=== PATIENT | female | born 1975 | race Caucasian/White ===

== ENCOUNTER 2023-09-24 04:45 | Emergency (ER) | payer OTHER, SELFPAY ==
[2023-09-24 04:48] VITALS: BP 117/79
[2023-09-24 06:28] VITALS: BMI 26.6
--- NOTE | 2023-09-24 06:34 | ED.GENMED ---
History of Present Illness
General
Chief Complaint: Abdominal Symptoms
Source: patient
Exam Limitations: none
Time Seen by Provider: 09/24/23 06:11
Nursing documentation reviewed up to this point in time: agreed with
Travel History
Have you had any contact with someone who has COVID-19?: No
Do you have any symptoms of coronavirus? Fever > 100 degrees, chills, cough, shortness of breath, sore throat, loss of taste or smell, muscle aches, or headache?: No
History of Present Illness
History of Present Illness:
48-year-old female with past medical history of chronic constipation who presents to the emergency department for evaluation of abdominal pain. Patient reports onset of symptoms about a week or 2 ago and they have been constant and progressive
since then. She reports a pressure sensation across her lower abdomen associated with feeling of distention/bloating. She reports that she has had some nausea and this morning had an episode of vomiting which is very unusual for her. She came to
the emergency room for evaluation. She denies any diarrhea and says that her constipation has been reasonably well-controlled that she takes MiraLAX and was recently started on Linzess about 3 weeks ago by GI doctor. She denies any fevers or
chills. Denies any urinary symptoms. Denies any vaginal bleeding or discharge. She denies any prior history of abdominal surgeries.
Past History
Past History
ED Past Medical History: Other (Constipation, Diverticulitis, anxiety)
ED Past Surgical History: , Gynecological (Dilatation and evacuation 06/16/2013), Orthopedic (Left and R TKR) and Other (Abdominoplasty); Negative Appendectomy, Bowel resection, Cardiac or Cholecystectomy
Social History
Tobacco: Non-smoker
Alcohol: None
Drug: None
Personal:
Living: with family
Employment: Employed
Family History
Family History: Other (Noncontributory)
Review of Systems
Review of Systems
All Other Systems: ROS reviewed and negative except as documented in HPI and ROS
Constitutional: Denies fever or chills
EENT: Denies sore throat or runny nose
Respiratory: Denies cough or trouble breathing
Cardiac: Denies chest pain or palpitations
ABD/GI: Reports abdominal pain, nausea and vomiting; Denies diarrhea or constipated
: Denies dysuria, frequency, flank pain or bleeding
Musculoskeletal: Denies neck pain or back pain
Neurological: Denies dizzy, headache, weakness or numbness
Phy Exam
Physical Exam
Physical Exam:
General: Awake, alert, oriented x3; no acute distress
Head: Normocephalic, atraumatic
Eyes: Conjunctiva normal, sclera anicteric
Throat: Airway intact, handling secretions
Neck: Trachea midline, supple without meningismus
Lungs: Clear to auscultation bilaterally, no wheezing, rales, rhonchi
Heart: Regular rate and rhythm, no murmurs, gallops, or rubs
Abd: Soft, non distended, mildly tender across lower abdomen somewhat worse left lower quadrant; no abdominal masses
Neuro: Cranial nerves grossly intact, speech fluid
Skin: no rash
Extremities: No edema in extremities, equal pulses in all extremities
Scores
Heart Failure Risk
Heart Failure Risk Score: Not Applicable
Heart Score for Chest Pain Patients
STEMI patient?: Not applicable
Withdrawal Assessment of Alcohol
Withdrawal Assessment Completed?: Not applicable
Course
Orders/Labs/Results
Orders:
Orders
09/24/23 06:25
Complete Blood Count/With Diff Urgent
Comprehensive Metabolic Panel Urgent
HCG, Serum Qualitative Screen Urgent
Lipase Urgent
Urinalysis Reflex To Culture Urgent
Date Specimen was Collected: 09/24/23
Time Specimen was Collected: 06:10
09/24/23 06:34
CT Abd/pel W Iv And Oral Contr Urgent
Comment:
Reason For Exam: lower abd pain, N/V
Iohexol [Omnipaque] See Protocol PO NOW STA
Test Result ONCE
Abnormal Lab Results
09/24/23
06:25
Absolute Lymphs (auto) 0.3 L 10^3/uL
(1.2-3.4)
Neutrophils % 89.0 H %
(42.2-75.2)
Lymphocytes % 4.2 L %
(20.5-51.1)
Sodium 133 L mmol/L
(135-145)
AST 63 H U/L
(14-36)
ALT 38 H U/L
(0-35)
09/24/23 06:25
09/24/23 06:25
Vital Signs
Initial and Last Documented VS:
Initial Vital Signs
Temp Pulse Resp BP Pulse Ox
36.9 C 89 16 117/79 100
09/24/23 04:48 09/24/23 04:48 09/24/23 04:48 09/24/23 04:48 09/24/23 04:48
Last Documented Vital Signs
Temp Pulse Resp BP Pulse Ox
36.9 C 73 16 108/65 100
09/24/23 04:48 09/24/23 08:15 09/24/23 08:15 09/24/23 08:15 09/24/23 08:15
MDM/Problems Addressed
Differential Diagnosis Includes:
Constipation, diverticulitis, bowel obstruction, medication side effect
MDM/Problems Addressed:
48-year-old female presents for abdominal pain, bloating and now an episode of nausea/vomiting this morning�symptoms have been ongoing for the past 1-2 weeks; notably recently started Linzess 3 weeks ago for chronic constipation. Vital signs here
within normal limits. Physical exam as above. Plan to place an IV check labs including CBC and a CMP, urinalysis. Will check CT of the abdomen pelvis. Will provide some IV fluids. Will monitor closely reassess after the above.
Labs reviewed: CBC unremarkable, CMP shows marginally elevated transaminases; has had similar elevations in the past. T bilirubin is normal, lipase is normal. Urinalysis no signs of infection. CT abdomen/pelvis shows mild to moderate colonic
fecal burden and rather diffuse diverticulosis. No clear signs of acute diverticulitis although somewhat difficult to visualize given paucity of intra-abdominal fat. Given amount of diverticulosis noted and the fact that she is having tenderness
on exam and could be reasonable to cover her with antibiotics for any potential developing diverticulitis. No clear negation for admission at this point think she can be discharged and can follow-up with GI as an outpatient. She feels comfortable
this plan. Spoke about return precautions all questions answered.
Chronic conditions affecting care:
Chronic constipation
*Radiology
Radiology exam reviewed: radiology read reviewed
*Pulse Oximetry
Patient hypoxic: no
*Critical Care Note
Total Time (30-74mins, 75-104mins- exclusive of procedures): Not Applicable
Data Reviewed
Review of Other/Old Records Reveals: Labs and Records
Source: patient
ED Attending Note
-
Portions of this chart may have been created with voice recognition software.� Occasional wrong word or��sound alike� substitutions may have occurred due to the inherent limitations of voice recognition software.
Discharge Plan
Departure
Patient Disposition: Home (Routine Discharge)
Date of Disposition: 09/24/23
Time of Disposition: 10:03
Patient with high blood pressure during this ER visit?: No
Discharge Problem:
Abdominal pain
Instructions: Constipation, Adult (DC), Diverticulitis (DC)
Prescriptions:
New
ciprofloxacin HCl 500 mg tablet
500 mg PO BID Qty: 14 0RF
metronidazole 500 mg tablet
500 mg PO TID Qty: 21 0RF
No Action
Motegrity 2 MG tablet
2 mg PO HS
terbinafine HCl 250 mg Tablet
250 mg PO DAILY
buspirone 10 mg Tablet
10 mg PO HS
Referrals:
Rachid Donato MD [Family Provider] -
Angely Taveras DO [Active] - Call in 1-3 days for appt
Activity Restrictions/Additional Instructions:
Thank you for visiting the Emergency Department at [facility].
1. Please schedule a follow up appointment as directed. Call first thing tomorrow morning to make an appointment.
2. If indicated, please take your medications as instructed and indicated on discharge paperwork.
3. If any of your symptoms do not improve, or persist, or become more severe within 6-12 hours, please return to the emergency department for further care.
4. Please return to the emergency department if you develop a headache, neck pain/stiffness, fever greater than 100.4F, chest pain, shortness of breath, persistent nausea, vomiting, slurred speech, difficulty walking, numbness/tingling, weakness,
signs of infection or any other symptoms that are worrisome to you.
Please call [phone] if you have any questions.
Interventions
Interventions:
*Risk Screen - Suicide Last Done: 09/24/23 04:48
*General Assessment Last Done: 09/24/23 06:28
*Neglect/Abuse Screening Last Done: 09/24/23 04:48
ED- Fall Risk Assessment Last Done: 09/24/23 06:28
*ED COVID-19 Vaccine History Last Done: 09/24/23 04:48
NS-Ekixsn-Yeplkvawrb Assessment Last Done: 09/24/23 06:28
[2023-09-24] MEDS: OMNIPAQUE 50 ML PO (06:44)
[2023-09-24 06:49] LABS: % Basophils 0.3 % (0-2); % Eosinophils 0.9 % (0-6); % Immature Granulocytes 0.2 % (0-0.5); % Lymphocytes 4.2 % (20.5-51.1); % Monocytes 5.4 % (1.7-9.3); Absolute Eosinophils 0.1 10^3/uL (0-0.7); Absolute Lymphocytes 0.3 10^3/uL (1.2-3.4); Absolute Monocytes 0.4 10^3/uL (0.1-0.6); Absolute Neutrophils 5.8 10^3/uL (1.4-6.5); Hematocrit 44.7 % (37.0-47.0); Mean Corp Hgb Conc. 33.6 g/dL (33.0-37.0); Mean Corpuscular Hgb 28.8 pg (27.0-31.0); Mean Corpuscular Volume 85.8 fL (81.0-99.0); Mean Platelet Volume 10.4 fL (7.4-10.4); Nucleated Red Blood Cells % 0 %; Platelet Count 302 10^3/uL (130-400); Red Blood Cell Count 5.21 10^6/uL (4.20-5.40); White Blood Cell Count 6.5 10^3/uL (4.8-10.8)
[2023-09-24 06:55] LABS: HCG, Serum Qualitative Screen Negative
[2023-09-24 06:59] LABS: ALT (SGPT) 38 U/L (0-35); AST (SGOT) 63 U/L (14-36); Albumin 4.4 g/dl (3.5-5.0); Alkaline Phosphatase 75 U/L (38-126); Blood Urea Nitrogen 14 mg/dl (7-17); Calcium 9.4 mg/dl (8.4-10.2); Carbon Dioxide 28 mmol/L (22-30); Chloride 102 mmol/L (98-107); Estimated Creatinine Clearance 92 ml/min; Glucose 92 mg/dl (70-99); Lipase 118 U/L (23-300); Potassium 4.6 mmol/L (3.5-5.1); Sodium 133 mmol/L (135-145); Total Bilirubin 0.7 mg/dl (0.2-1.3); Total Protein 7.1 g/dl (6.3-8.2); eGFR > 60.00
[2023-09-24 07:37] LABS: Urine Albumin Negative (Neg - Trace); Urine Bilirubin Negative (Negative); Urine Character Clear (Clear); Urine Color Yellow; Urine Glucose Negative (Negative); Urine Ketone Negative (Negative); Urine Leukocyte Negative (Negative); Urine Nitrite Negative (Negative); Urine Occult Blood Negative (Negative); Urine Urobilinogen Negative (Neg - 1+)
[2023-09-24 08:15] VITALS: BP 108/65
[2023-09-24 10:29] VITALS: BP 115/71
--- NOTE | 2023-09-24 10:29 | EDRN ---
Reviewed discharge instructions with patient. Verbalized understanding.
== END 2023-09-24 10:35 | disposition home or self-care (01) ==
LOC: EMR 04:45
PROVIDERS: EMERGENCY PHYSICIAN Emergency Medicine; FAMILY PHYSICIAN Internal Medicine
DX: R10.9 Unspecified abdominal pain (principal); K59.00 Constipation, unspecified; F41.9 Anxiety disorder, unspecified
CPT/HCPCS: 99284; 74177; 80053; 81003; 83690; 84703; 85025; Q9967

== ENCOUNTER 2023-10-01 21:51 | Emergency (ER) | payer OTHER, SELFPAY ==
[2023-10-01 21:53] VITALS: BP 122/84
[2023-10-01 22:10] LABS: % Basophils 0.9 % (0-2); % Eosinophils 2.3 % (0-6); % Immature Granulocytes 0.4 % (0-0.5); % Lymphocytes 33.4 % (20.5-51.1); % Monocytes 9.5 % (1.7-9.3); % Neutrophils 53.5 % (42.2-75.2); Absolute Basophils 0.1 10^3/uL (0-0.2); Absolute Eosinophils 0.2 10^3/uL (0-0.7); Absolute Lymphocytes 2.7 10^3/uL (1.2-3.4); Absolute Monocytes 0.8 10^3/uL (0.1-0.6); Absolute Neutrophils 4.3 10^3/uL (1.4-6.5); Hematocrit 38.2 % (37.0-47.0); Hemoglobin 13.3 g/dL (12.0-16.0); Mean Corp Hgb Conc. 34.8 g/dL (33.0-37.0); Mean Corpuscular Volume 83.4 fL (81.0-99.0); Nucleated Red Blood Cells % 0 %; Platelet Count 355 10^3/uL (130-400); Red Blood Cell Count 4.58 10^6/uL (4.20-5.40); White Blood Cell Count 8.1 10^3/uL (4.8-10.8)
[2023-10-01 22:29] LABS: ALT (SGPT) 44 U/L (0-35); AST (SGOT) 55 U/L (14-36); Albumin 4.5 g/dl (3.5-5.0); Alkaline Phosphatase 64 U/L (38-126); Blood Urea Nitrogen 9 mg/dl (7-17); Calcium 9.8 mg/dl (8.4-10.2); Carbon Dioxide 25 mmol/L (22-30); Chloride 97 mmol/L (98-107); Glucose 101 mg/dl (70-99); Sodium 133 mmol/L (135-145); Total Bilirubin 0.3 mg/dl (0.2-1.3); Total Protein 7.3 g/dl (6.3-8.2); eGFR > 60.00
[2023-10-02 01:02] VITALS: BP 119/81
--- NOTE | 2023-10-02 01:32 | ED.GENMED ---
History of Present Illness
General
Chief Complaint: Abdominal Symptoms
Source: patient
Exam Limitations: none
Time Seen by Provider: 10/02/23 01:12
Travel History
Have you had any contact with someone who has COVID-19?: No
Do you have any symptoms of coronavirus? Fever > 100 degrees, chills, cough, shortness of breath, sore throat, loss of taste or smell, muscle aches, or headache?: No
History of Present Illness
History of Present Illness:
This is a 48 year old female that comes in with c/o abd bloating, diarrhea and now right sided back pain. State that this started 3 weeks ago and she felt it was getting worse. States that a week ago on she vomited but has not vomited since
that time. States that she was seen here and told that she had diverticulitis and given Flagyl and Ciprofloxacin. States that she finished this today. States that she has this right sided dull back pain. States that her stool is still liquid. States
that she saw the GI on Thursday. He told her to flush out her system with a GI prep and an enema. States that she did this. States that yesterday she only eat a little broth and Jell-o and she was very bloated after this, you could see her abd being
distended. Today she worked out as she does every day and even with drinking water her abd gets distended. States that she probable had diarrhea bout 6 times today. Denies any fever, chills, chest pain, SOB, vomiting, headache, dizziness, urinary
burning.
Past History
Past History
ED Past Medical History: Other (Constipation, Diverticulitis,)
ED Past Surgical History: , Gynecological (Dilatation and evacuation 06/16/2013), Orthopedic (Left and R TKR, Left shoulder surgery, ) and Other (Abdominoplasty); Negative Appendectomy, Bowel resection, Cardiac or Cholecystectomy
Social History
Tobacco: Non-smoker
Alcohol: None
Drug: None
Personal:
Living: with family
Employment: Employed
Family History
Family History: Other (Noncontributory)
Review of Systems
Review of Systems
All Other Systems: ROS reviewed and negative except as documented in HPI and ROS
Constitutional: Reports no symptoms; Denies fever or chills
EENT: Reports no symptoms
Respiratory: Reports no symptoms; Denies cough or trouble breathing
Cardiac: Reports no symptoms; Denies chest pain
ABD/GI: Reports abdominal pain and diarrhea; Denies nausea or vomiting
: Reports no symptoms; Denies dysuria, frequency or urgency
Musculoskeletal: Reports no symptoms
Skin: Reports no symptoms
Neurological: Reports no symptoms; Denies dizzy or headache
Psychiatric: Reports no symptoms
Phy Exam
General Physical Exam
General Presentation: well appearing and no apparent distress
General age: appears stated age
General Skin: warm and dry
General Habitus: normal
General Mental: alert
General Hydration: appears well hydrated
ENT Exam
ENT Exam: TM's normal, pharynx normal and neck supple
Eye Exam
Eye Exam: EOMI
Cardiovascular Exam
Cardiovascular Exam: regular rate/rhythm, no edema, no murmur and normal peripheral pulses
Pulmonary Exam
Pulmonary Exam: lungs clear, no respiratory distress, no rales, chest non tender, no crackles, no rhonchi, no wheezing and no cough
Gastrointestinal Exam
Gastrointestinal Exam: normal bowel sounds, non tender, soft, no organomegaly, no pulsatile mass and non distended
Musculoskeletal Exam
Musculoskeletal Exam: full ROM and no edema
Skin Exam
Skin Exam: normal color, warm/dry, no rash and no petechia
Psychiatric Exam
Psychiatric Exam: normal mood/affect
Course
Orders/Labs/Results
Orders:
Orders
10/01/23 22:06
Complete Blood Count/With Diff Urgent
Comprehensive Metabolic Panel Urgent
10/02/23 01:32
STOOL [C difficile Antigen & Toxins] Urgent
JANETTE Source: Feces/Stool
Specimen Description:
Date Specimen was Collected: 10/02/23
Time Specimen was Collected: 01:43
10/02/23 01:44
Urinalysis Reflex To Culture Urgent
Date Specimen was Collected: 10/02/23
Time Specimen was Collected: 01:44
Stool Culture Urgent
JANETTE Source: Feces/Stool
Specimen Description:
Date Specimen was Collected: 10/02/23
Time Specimen was Collected: 01:43
Stool For WBC Urgent
JANETTE Source: Feces/Stool
Specimen Description:
Date Specimen was Collected: 10/02/23
Time Specimen was Collected: 01:44
Abnormal Lab Results
10/01/23
22:06
Absolute Monos (auto) 0.8 H 10^3/uL
(0.1-0.6)
Monocytes % 9.5 H %
(1.7-9.3)
Sodium 133 L mmol/L
(135-145)
Chloride 97 L mmol/L
(98-107)
Glucose 101 H mg/dl
(70-99)
AST 55 H U/L
(14-36)
ALT 44 H U/L
(0-35)
10/01/23 22:06
10/01/23 22:06
Sodium very slightly low. AST/ALT mildly elevated.
Urine negative for infection.
Vital Signs
Initial and Last Documented VS:
Initial Vital Signs
Temp Pulse Resp BP Pulse Ox
98.0 F 75 18 122/84 100
10/01/23 21:53 10/01/23 21:53 10/01/23 21:53 10/01/23 21:53 10/01/23 21:53
Last Documented Vital Signs
Temp Pulse Resp BP Pulse Ox
98.0 F 71 16 119/81 99
10/01/23 21:53 10/02/23 01:02 10/02/23 01:02 10/02/23 01:02 10/02/23 01:02
MDM/Problems Addressed
Differential Diagnosis Includes:
gastroparesis, UTI,
MDM/Problems Addressed:
This is a 48 year old female that was seen here 09/24/[address] done of the abd. States that she came in with the same c/o abd bloating and diarrhea. States that they thought she had diverticulitis and she was given antibiotics which she
finished today. States that she is still having diarrhea and even if she drinks water she is bloated. States that she also has some right sided low back pain which is new.
Will check labs, get Stool for C-diff and culture, Urine.
Explained to patient olga this sounds like Gastroparesis. Explained that she will need to see her GI specialist for further evaluation. Do not think that other then getting the urine and stool form an emergency stand point there is not to much to be
done. Encouraged patient to stay away form milk and milk products until the diarrhea stops. She may use Miralax to help firm up the stool. Patient also needs to try eating food as explained that it she continues with just liquid her stool will
remain like diarrhea.
Back into see patient. Reviewed CT from the . Reviewed findings of the right kidney and explained that when this gets full that this may be causing some right sided back discomfort. Explained to patient that this may also be gastroparesis and
she will need to follow up with the Gi specialist. Encouraged patient to try eating 6 small meals daily and taking sips of liquids and not drinking large amounts at one time. Explained that she may need a Endoscopy for further evaluation.
Chronic conditions affecting care:
NA
Acute Exacerbation and/or Progression of Chronic Illness:
NA
*Pulse Oximetry
Patient hypoxic: no
*EKG
Interpreted by ED Provider?: NA
Rate: EKG- N/A
*[employer] Interpretation
Rate: [employer]- N/A
*Critical Care Note
Total Time (30-74mins, 75-104mins- exclusive of procedures): Not Applicable
ED Attending Note
-
Portions of this chart may have been created with voice recognition software.� Occasional wrong word or��sound alike� substitutions may have occurred due to the inherent limitations of voice recognition software.
Discharge Plan
Departure
Patient Disposition: Home (Routine Discharge)
Date of Disposition: 10/02/23
Time of Disposition: 02:34
Patient with high blood pressure during this ER visit?: No
Condition: Good
Covid-19: Not Applicable
Discharge Problem:
Abdominal bloating
Instructions: Gas and bloating, Abdominal Pain
Prescriptions:
No Action
Motegrity 2 MG tablet
2 mg PO HS
terbinafine HCl 250 mg Tablet
250 mg PO DAILY
buspirone 10 mg Tablet
10 mg PO HS
ciprofloxacin HCl 500 mg tablet
500 mg PO BID Qty: 14 0RF
metronidazole 500 mg tablet
500 mg PO TID Qty: 21 0RF
Referrals:
Rachid Donato MD [Family Provider] - Call in 1-3 days for appt
Activity Restrictions/Additional Instructions:
As discussed your blood work shows that your liver enzymes are slightly elevated. Your urine is negative for infection. Please follow up with the GI specialist for further evaluation. If your stool spec. would come back positive for C-diff or any
other issues you will be called and notified and started on antibiotics. Please try eating 6 small meals daily such as chicken, rice and potatoes as this will help give your some bulk and decrease the diarrhea. IF YOU HAVE ANY OTHER CONCERNS PLEASE
RETURN TO THE EMERGENCY ROOM.
Interventions
Interventions:
*Risk Screen - Suicide Last Done: 10/01/23 21:53
*General Assessment Last Done: 10/01/23 21:53
*Neglect/Abuse Screening Last Done: 10/01/23 21:53
ED- Fall Risk Assessment Last Done: 10/02/23 01:01
FT-Oepckd-Zcgrezlqgo Assessment Last Done: 10/02/23 01:01
[2023-10-02 02:06] LABS: Urine Albumin Negative (Neg - Trace); Urine Bilirubin Negative (Negative); Urine Character Clear (Clear); Urine Color Yellow; Urine Glucose Negative (Negative); Urine Ketone Negative (Negative); Urine Leukocyte Negative (Negative); Urine Nitrite Negative (Negative); Urine Occult Blood Negative (Negative); Urine Urobilinogen Negative (Neg - 1+); Urine pH 6.5 (5.0-9.0)
== END 2023-10-02 02:45 | disposition home or self-care (01) ==
LOC: EMR 21:51
PROVIDERS: Clinical Nurse Specialist Family Health; Emergency Medicine; EMERGENCY PHYSICIAN Student in an Organized Health Care Education/Training Program; FAMILY PHYSICIAN Internal Medicine
DX: R14.0 Abdominal distension (gaseous) (principal)
CPT/HCPCS: 99283; 80053; 81003; 85025; 87045; 87046; 87324; 87427; 87449; 89055

== ENCOUNTER → 2023-12-18 07:02 | Outpatient (REF) | payer OTHER, SELFPAY | LOC: HWWDC 07:02 | PROVIDERS: ATTENDING PHYSICIAN Nurse Practitioner Family; FAMILY PHYSICIAN Internal Medicine | DX: Z12.31 Encounter for screening mammogram for malignant neoplasm of breast (principal) | CPT/HCPCS: 77063; 77067 ==

== ENCOUNTER 2024-06-17 22:40 | Emergency (ER) | payer OTHER, SELFPAY ==
[2024-06-17 22:40] VITALS: BMI 23.5
[2024-06-17 22:45] VITALS: BP 113/58
[2024-06-17 22:59] LABS: % Basophils 0.7 % (0-2); % Eosinophils 4.7 % (0-6); % Immature Granulocytes 0.3 % (0-0.5); % Lymphocytes 33.6 % (20.5-51.1); % Monocytes 9.9 % (1.7-9.3); % Neutrophils 50.8 % (42.2-75.2); Absolute Basophils 0.1 10^3/uL (0-0.2); Absolute Eosinophils 0.3 10^3/uL (0-0.7); Absolute Lymphocytes 2.3 10^3/uL (1.2-3.4); Absolute Monocytes 0.7 10^3/uL (0.1-0.6); Absolute Neutrophils 3.4 10^3/uL (1.4-6.5); Hematocrit 40.3 % (37.0-47.0); Hemoglobin 13.3 g/dL (12.0-16.0); Mean Corpuscular Hgb 28.9 pg (27.0-31.0); Mean Corpuscular Volume 87.4 fL (81.0-99.0); Nucleated Red Blood Cells % 0 %; Platelet Count 264 10^3/uL (130-400); Red Blood Cell Count 4.61 10^6/uL (4.20-5.40); Red Cell Dist. Width 14.1 % (11.5-14.5); White Blood Cell Count 6.8 10^3/uL (4.8-10.8)
[2024-06-17 23:08] LABS: Urine Albumin Negative (Neg - Trace); Urine Bilirubin Negative (Negative); Urine Character Clear (Clear); Urine Color Yellow; Urine Glucose Negative (Negative); Urine Ketone Negative (Negative); Urine Leukocyte Negative (Negative); Urine Nitrite Negative (Negative); Urine Occult Blood Negative (Negative); Urine Urobilinogen Negative (Neg - 1+); Urine pH 6.5 (5.0-9.0)
[2024-06-17 23:21] LABS: HCG, Serum Qualitative Screen Negative
[2024-06-17 23:29] LABS: ALT (SGPT) 32 U/L (0-35); AST (SGOT) 59 U/L (14-36); Albumin 4.6 g/dl (3.5-5.0); Alkaline Phosphatase 68 U/L (38-126); Blood Urea Nitrogen 13 mg/dl (7-17); Calcium 9.9 mg/dl (8.4-10.2); Carbon Dioxide 29 mmol/L (22-30); Chloride 100 mmol/L (98-107); Glucose 104 mg/dl (70-99); Lipase 210 U/L (23-300); Potassium 4.4 mmol/L (3.5-5.1); Sodium 138 mmol/L (135-145); Total Bilirubin 0.4 mg/dl (0.2-1.3); Total Protein 7.3 g/dl (6.3-8.2); eGFR > 60.00
--- NOTE | 2024-06-18 01:52 | ED.GENMED ---
History of Present Illness
<ACACIA Corrigan - Last Filed: 06/18/24 04:45>
General
Chief Complaint: Abdominal Pain
Source: patient
Time Seen by Provider: 06/18/24 01:48
Nursing documentation reviewed up to this point in time: agreed with
History of Present Illness
History of Present Illness:
Pt is a 48 yo F who presents to the ED with bloating, nausea, and right flank pain. Pt reports that on Thursday she began to feel bloating and nauseous. She states that it felt like pressure build up and that she became very bloated. She states that
she took Gas-X and Tums throughout the week without relief. She states that she felt better on and the symptoms subsided, and then today around 9pm she began to have the symptoms again with right flank pain. Patient states that she has not
tried OTC pain relief for the pain. Pt states that she has felt 'feverish' but states that she did not have a fever when she took her temperature. Pt reports that during the week she has had normal bowel movements. Pt denies vomiting, dysuria,
burning with urination, abdominal pain, diarrhea, chills, chest pain, shortness of breath, headache. Pt reports she is expecting her menstrual period to begin next week.
Past History
<Nora Allison RUTH ANN - Last Filed: 06/18/24 04:45>
Past History
ED Past Medical History: Other (Constipation, Diverticulitis,)
ED Past Surgical History: , Gynecological (Dilatation and evacuation 06/16/2013), Orthopedic (Left and R TKR, Left shoulder surgery, ) and Other (Abdominoplasty); Negative Appendectomy, Bowel resection, Cardiac or Cholecystectomy
Social History
Tobacco: Non-smoker
Alcohol: None
Drug: None
Personal:
Living: with family
Employment: Employed
Family History
Family History: Other (Noncontributory)
Review of Systems
<Nora Allison [facility] - Last Filed: 06/18/24 04:45>
Review of Systems
Allergies reviewed?: Yes
Constitutional: Reports no symptoms
Respiratory: Reports no symptoms
Cardiac: Reports no symptoms
ABD/GI: Reports nausea and other (bloating)
: Reports flank pain
Musculoskeletal: Reports no symptoms
Neurological: Reports no symptoms
Phy Exam
<Nora Allison [facility] - Last Filed: 06/18/24 04:45>
General Physical Exam
General Presentation: well appearing and no apparent distress
General age: appears stated age
General Skin: warm
General Habitus: normal
General Mental: alert
General Hydration: appears well hydrated
Cardiovascular Exam
Cardiovascular Exam: regular rate/rhythm
Pulmonary Exam
Pulmonary Exam: lungs clear
Gastrointestinal Exam
Gastrointestinal Exam: normal bowel sounds, non tender, soft, non distended and no cva tenderness
Palpation: left upper quadrant: No tenderness, left lower quadrant: No tenderness, right upper quadrant: No tenderness, right lower quadrant: No tenderness and generalized: No tenderness
Musculoskeletal Exam
Musculoskeletal Exam: back tenderness (right sided lower back tenderness)
Course
<Nora Allison [facility] - Last Filed: 06/18/24 04:45>
Orders/Labs/Results
Orders:
Orders
06/17/24 22:48
Test Result ONCE
06/17/24 22:50
Complete Blood Count/With Diff Urgent
Comprehensive Metabolic Panel Urgent
HCG, Serum Qualitative Screen Urgent
Comment: Notify provider if positive test present
Lipase Urgent
06/17/24 23:02
Urinalysis Reflex To Culture Urgent
Date Specimen was Collected: 06/17/24
Time Specimen was Collected: 22:59
06/18/24 02:11
US Abdomen Complete/Upper Urgent
Comment:
Reason For Exam: abd pain, blaoting, R flank pain
Abnormal Lab Results
06/17/24
22:50
Absolute Monos (auto) 0.7 H 10^3/uL
(0.1-0.6)
Monocytes % 9.9 H %
(1.7-9.3)
Glucose 104 H mg/dl
(70-99)
AST 59 H U/L
(14-36)
06/17/24 22:50
06/17/24 22:50
Vital Signs
Initial and Last Documented VS:
Initial Vital Signs
Temp Pulse Resp BP Pulse Ox
98.8 F 65 16 113/58 100
06/17/24 22:45 06/17/24 22:45 06/17/24 22:45 06/17/24 22:45 06/17/24 22:45
Last Documented Vital Signs
Temp Pulse Resp BP Pulse Ox
98.8 F 57 16 107/63 97
06/17/24 22:45 06/18/24 04:35 06/18/24 04:35 06/18/24 04:35 06/18/24 04:35
<Maki Márquez, DO - Last Filed: 06/18/24 04:17>
Orders/Labs/Results
Orders:
Orders
06/17/24 22:48
Test Result ONCE
06/17/24 22:50
Complete Blood Count/With Diff Urgent
Comprehensive Metabolic Panel Urgent
HCG, Serum Qualitative Screen Urgent
Comment: Notify provider if positive test present
Lipase Urgent
06/17/24 23:02
Urinalysis Reflex To Culture Urgent
Date Specimen was Collected: 06/17/24
Time Specimen was Collected: 22:59
06/18/24 02:11
US Abdomen Complete/Upper Urgent
Comment:
Reason For Exam: abd pain, blaoting, R flank pain
Abnormal Lab Results
06/17/24
22:50
Absolute Monos (auto) 0.7 H 10^3/uL
(0.1-0.6)
Monocytes % 9.9 H %
(1.7-9.3)
Glucose 104 H mg/dl
(70-99)
AST 59 H U/L
(14-36)
06/17/24 22:50
06/17/24 22:50
Vital Signs
Initial and Last Documented VS:
Initial Vital Signs
Temp Pulse Resp BP Pulse Ox
98.8 F 65 16 113/58 100
06/17/24 22:45 06/17/24 22:45 06/17/24 22:45 06/17/24 22:45 06/17/24 22:45
Last Documented Vital Signs
Temp Pulse Resp BP Pulse Ox
98.8 F 57 16 107/63 97
06/17/24 22:45 06/18/24 04:35 06/18/24 04:35 06/18/24 04:35 06/18/24 04:35
<ACACIA Corrigan - Last Filed: 06/18/24 04:45>
MDM/Problems Addressed
Differential Diagnosis Includes:
Cholecystis, IBS
<ACACIA Corrigan - Last Filed: 06/18/24 04:45>
*Critical Care Note
Total Time (30-74mins, 75-104mins- exclusive of procedures): Not Applicable
<Maki Márquez DO - Last Filed: 06/18/24 04:17>
*Radiology
Radiology exam reviewed: radiology read reviewed
*Pulse Oximetry
Patient hypoxic: no
ED Attending Note
<ACACIA Corrigan - Last Filed: 06/18/24 04:45>
-
Portions of this chart may have been created with voice recognition software.� Occasional wrong word or��sound alike� substitutions may have occurred due to the inherent limitations of voice recognition software.
<Maki Márquez DO - Last Filed: 06/18/24 04:17>
ED Attending Note
Patient seen and examined by attending physician: Yes
I performed the substantive portion of visit, reviewed & personally made and approve the management plan that is documented in note by myself or PATT.: Yes
ED Attending Note:
This is a 48-year-old woman with no significant past medical history who presents with 1 week history of intermittent mid to lower abdominal bloating as well as nausea without vomiting. Was feeling improved, symptoms resolved on but then
returned the following day, June 17. Along with abdominal bloating she is also noted some right low back pain. No radiation of the pain. No dysuria and urgency and or hematuria. No fever. Last menstrual period 3 weeks ago, normal and
on time. Has been moving her bowels normally, denies diarrhea nor constipation. She does have prior history of constipation. Has been taking Gas-X, Tums without relief.
GENERAL: Alert , in no apparent distress
NECK: Supple, nontender, no meningismus, no significant adenopathy.
ENT: oral mucosa is moist.
CARDIAC: Regular rate and rhythm. no murmur.
LUNGS: Clear breath sounds bilaterally, no acute respiratory distress, no wheezes/rales/rhonchi
ABDOMEN: Soft, nondistended, without focal tenderness, no r/g, no cvat. normoactive BS.
NEUROLOGICAL: Alert and oriented x3, no focal neuro deficits. Gait is kelly and steady.
SKIN: Warm and dry, normal color, skin intact. No rash.
MUSCULOSKELETAL: No C/C/E. peripheral pulses are full and equal b/l. No palpable tenderness.
PSYCH: Normal and appropriate interaction.
Concern for constipation, irritable bowel, UTI, kidney stone, less likely cholelithiasis.
Thus far labs are unremarkable with normal white blood cell count, unremarkable chemistries save for minimally elevated AST of 59, similar to previous. All other LFTs and lipase are normal. hCG is negative. Urinalysis is crystal-clear.
Will check abdominal ultrasound.
Abdominal ultrasound is unremarkable.
Patient remains well in appearance.
Abdominal bloating may be an element of constipation, irritable bowel syndrome. Recommend bland diet, increasing clear liquids and prompt follow-up with PCP.
Discharge Plan
Departure
Patient Disposition: Home (Routine Discharge)
Date of Disposition: 06/18/24
Time of Disposition: 04:14
Patient with high blood pressure during this ER visit?: No
Condition: Good
Discharge Problem:
Abdominal bloating
Instructions: Abdominal Pain
Prescriptions:
No Action
Motegrity 2 MG tablet
2 mg PO HS
terbinafine HCl 250 mg Tablet
250 mg PO DAILY
buspirone 10 mg Tablet
10 mg PO HS
ciprofloxacin HCl 500 mg tablet
500 mg PO BID Qty: 14 0RF
metronidazole 500 mg tablet
500 mg PO TID Qty: 21 0RF
Referrals:
Rachid Donato MD [Family Provider] - Call in 1-3 days for appt
Interventions
Interventions:
*Risk Screen - Suicide Last Done: 06/17/24 22:45
*General Assessment Last Done: 06/17/24 22:45
*Neglect/Abuse Screening Last Done: 06/17/24 22:45
*Nursing Disposition Last Done: 06/18/24 04:35
Discharge Date and Time
Discharge Date/Time: 06/18/24 04:36
Print Language: ARABIC
[2024-06-18 02:01] VITALS: BP 99/74
[2024-06-18 04:35] VITALS: BP 107/63
== END 2024-06-18 04:36 | disposition home or self-care (01) ==
LOC: EMR 22:40
PROVIDERS: EMERGENCY PHYSICIAN Emergency Medicine; FAMILY PHYSICIAN Internal Medicine
DX: R14.0 Abdominal distension (gaseous) (principal)
CPT/HCPCS: 99284; 76700; 80053; 81003; 83690; 84703; 85025

== ENCOUNTER → 2024-12-21 06:41 | Outpatient (REF) | payer OTHER, SELFPAY | LOC: HWWDC 06:41 | PROVIDERS: ATTENDING PHYSICIAN Nurse Practitioner Family; FAMILY PHYSICIAN Internal Medicine | DX: Z12.31 Encounter for screening mammogram for malignant neoplasm of breast (principal) | CPT/HCPCS: 77063; 77067 ==

== ENCOUNTER 2024-12-21 21:57 | Emergency (ER) | payer OTHER, SELFPAY ==
[2024-12-21 22:00] VITALS: BP 123/77
[2024-12-21 22:11] LABS: Urine Albumin Negative (Neg - Trace); Urine Bilirubin Negative (Negative); Urine Character Clear (Clear); Urine Color Yellow; Urine Glucose Negative (Negative); Urine Ketone Negative (Negative); Urine Leukocyte Negative (Negative); Urine Nitrite Negative (Negative); Urine Occult Blood 1+ (Negative); Urine Urobilinogen Negative (Neg - 1+)
[2024-12-21 22:18] VITALS: BMI 25.2
[2024-12-21 22:19] LABS: Urine Red Blood Cell 0-2 /HPF (0-2); Urine Squamous Cell >30 /LPF (Few); Urine White Cell 0-2 /HPF (0-5)
[2024-12-21 22:20] LABS: Urine Bacteria Many (Negative)
[2024-12-21 22:22] VITALS: BP 110/69
[2024-12-21 23:00] VITALS: BP 106/76
[2024-12-22 00:16] VITALS: BP 109/74
[2024-12-22] MEDS: OMNIPAQUE 50 ML PO (00:23)
[2024-12-22 00:41] LABS: HCG, Serum Qualitative Screen Negative
[2024-12-22 00:45] LABS: % Basophils 0.9 % (0-2); % Eosinophils 3.6 % (0-6); % Immature Granulocytes 1.3 % (0-0.5); % Lymphocytes 30.2 % (20.5-51.1); % Monocytes 8.1 % (1.7-9.3); % Neutrophils 55.9 % (42.2-75.2); Absolute Basophils 0.1 10^3/uL (0-0.2); Absolute Eosinophils 0.2 10^3/uL (0-0.7); Absolute Immature Granulocytes 0.1 10^3/uL (0-0.05); Absolute Monocytes 0.5 10^3/uL (0.1-0.6); Absolute Neutrophils 3.7 10^3/uL (1.4-6.5); Hematocrit 34.8 % (37.0-47.0); Hemoglobin 11.8 g/dL (12.0-16.0); Mean Corp Hgb Conc. 33.9 g/dL (33.0-37.0); Mean Corpuscular Hgb 29.2 pg (27.0-31.0); Mean Corpuscular Volume 86.1 fL (81.0-99.0); Mean Platelet Volume 10.5 fL (7.4-10.4); Nucleated Red Blood Cells % 0 %; Platelet Count 289 10^3/uL (130-400); Red Blood Cell Count 4.04 10^6/uL (4.20-5.40); Red Cell Dist. Width 13.8 % (11.5-14.5); White Blood Cell Count 6.7 10^3/uL (4.8-10.8)
[2024-12-22 00:48] LABS: ALT (SGPT) 25 U/L (0-35); AST (SGOT) 33 U/L (14-36); Albumin 3.7 g/dl (3.5-5.0); Alkaline Phosphatase 58 U/L (38-126); Blood Urea Nitrogen 12 mg/dl (7-17); Calcium 9.2 mg/dl (8.4-10.2); Carbon Dioxide 25 mmol/L (22-30); Chloride 107 mmol/L (98-107); Estimated Creatinine Clearance 80 ml/min; Glucose 84 mg/dl (70-99); Lipase 137 U/L (23-300); Potassium 3.7 mmol/L (3.5-5.1); Sodium 139 mmol/L (135-145); Total Bilirubin 0.4 mg/dl (0.2-1.3); Total Protein 6.1 g/dl (6.3-8.2); eGFR > 60.00
[2024-12-22 01:00] VITALS: BP 113/80
--- NOTE | 2024-12-22 01:01 | ED.GENMED ---
History of Present Illness
General
Chief Complaint: Abdominal Pain
Source: patient
Exam Limitations: none
Time Seen by Provider: 12/21/24 23:47
History of Present Illness
History of Present Illness:
pt is a 49 yo F
h/o hyperkalemia, on lasix
previous c section, tummy tuck
says for about 6 days she has been very bloated and uncomfortable, specificaly lower abdomen
she is due for menstural cycle and is a few days late
took home preg test which was neg
she has been chronically constipated and takes meds but says this is no different and she has had BM
but isn't really eating likely normally and is nauseated
pt felt like the pain was lower pelvic and burning but denied vaginal discharge, dysuria, hematuria
no diarrhea, bleeding
taking motrin for pain
last taken 6 pm
Past History
Past History
ED Past Medical History: Other (Constipation, Diverticulitis,)
ED Past Surgical History: , Gynecological (Dilatation and evacuation 06/16/2013), Orthopedic (Left and R TKR, Left shoulder surgery, ) and Other (Abdominoplasty); Negative Appendectomy, Bowel resection, Cardiac or Cholecystectomy
Social History
Tobacco: Non-smoker
Alcohol: None
Drug: None
Personal:
Living: with family
Employment: Employed
Family History
Family History: Other (Noncontributory)
Review of Systems
Review of Systems
Allergies reviewed?: Yes
All Other Systems: Not applicable
Phy Exam
Physical Exam
Physical Exam:
GENERAL: Alert , in no apparent distress
EYE: pupils equal and reactive
NECK: Supple
ENT: o/p clr, mmm.
CARDIAC: Regular rate and rhythm .
LUNGS: Clear breath sounds bilaterally, no acute respiratory distress, no wheezes/rales/rhonchi
ABDOMEN: Soft, without focal tenderness, no r/g, no cvat,
FLAT nondistended; hyperactive bowel sounds
minimal tenderness lower abd
NEUROLOGICAL: Alert and oriented, no focal neuro deficits
SKIN: Warm and dry, skin intact.
MUSCULOSKELETAL: No edema, well perfused. neg chayito's sign
PSYCH: Normal and appropriate interaction.
Course
Orders/Labs/Results
Orders:
Orders
12/21/24 22:05
Urinalysis Reflex To Culture Urgent
Date Specimen was Collected: 12/21/24
Time Specimen was Collected: 22:02
Urine Microscopic Reflex Cult Urgent
Urine Culture Urgent
JANETTE Source: U
Specimen Description:
Date Specimen was Collected: 12/21/24
Time Specimen was Collected: 22:02
12/22/24 00:01
Iohexol [Omnipaque] See Protocol PO NOW STA
Test Result ONCE
US Pelvis W Transvag Combined Urgent
Comment:
Reason For Exam: bloating, pelvic pain
12/22/24 00:11
Complete Blood Count/With Diff Urgent
Comprehensive Metabolic Panel Urgent
HCG, Serum Qualitative Screen Urgent
Lipase Urgent
12/22/24 01:01
Ketorolac [Toradol] 15 mg IV NOW STA
Ondansetron Injectable [Zofran] 4 mg IV NOW STA
12/22/24 01:09
CT Abd/pel W Iv And Oral Contr Urgent
Comment:
Reason For Exam: lower abd pain, nausea, can't eat
Abnormal Lab Results
12/21/24 12/22/24
22:05 00:11
RBC 4.04 L 10^6/uL
(4.20-5.40)
Hgb 11.8 L g/dL
(12.0-16.0)
Hct 34.8 L %
(37.0-47.0)
MPV 10.5 H fL
(7.4-10.4)
Abs Immat Gran (auto) 0.1 H 10^3/uL
(0-0.05)
Immature Gran % 1.3 H %
(0-0.5)
Total Protein 6.1 L g/dl
(6.3-8.2)
Ur Occult Blood Reflex 1+ A
(Negative)
Urine Bacteria (Reflex) Many A
(Negative)
12/22/24 00:11
12/22/24 00:11
Vital Signs
Initial and Last Documented VS:
Initial Vital Signs
Temp Pulse Resp BP Pulse Ox
36.6 C 72 16 123/77 100
12/21/24 22:00 12/21/24 22:00 12/21/24 22:00 12/21/24 22:00 12/21/24 22:00
Last Documented Vital Signs
Temp Pulse Resp BP Pulse Ox
36.6 C 72 16 110/73 99
12/21/24 22:00 12/21/24 22:00 12/21/24 22:00 12/22/24 03:47 12/22/24 03:54
MDM/Problems Addressed
Differential Diagnosis Includes:
ovarian cyst, uti, constipation, bowel obstruction, diveritculitis, appendicitis
MDM/Problems Addressed:
49 y/o F
h/o constipation IBS
here with abd bloating and nausea, lack of appetite x 1 week
saying she is moving her bowels, last was 2 day ago dnt his is pretty regular for her
no vomiting, fever, chills
does have h/o ovarian cysts
pain was worse and not going away so she came in; she does have appt with gyne in 2 days
on exam pt does not appear bloated, mild tenderness lower abdomen
started with US which showed small L ovarian cyst, no pelvic free fluid; did not think this was cause of pain so pursued with CT which was neg for obstrution
she does have constipation/stool in colon
recommended miralax or mag citrate and f/u with her GI.
*Critical Care Note
Total Time (30-74mins, 75-104mins- exclusive of procedures): Not Applicable
ED Attending Note
-
Portions of this chart may have been created with voice recognition software.� Occasional wrong word or��sound alike� substitutions may have occurred due to the inherent limitations of voice recognition software.
Discharge Plan
Departure
Patient Disposition: Home (Routine Discharge)
Date of Disposition: 12/22/24
Time of Disposition: 03:28
Patient with high blood pressure during this ER visit?: No
Condition: Fair
Covid-19: Not Applicable
Discharge Problem:
Constipation
Instructions: Constipation, Adult (DC)
Prescriptions:
No Action
Motegrity 2 MG tablet
2 mg PO HS
terbinafine HCl 250 mg Tablet
250 mg PO DAILY
buspirone 10 mg Tablet
10 mg PO HS
ciprofloxacin HCl 500 mg tablet
500 mg PO BID Qty: 14 0RF
metronidazole 500 mg tablet
500 mg PO TID Qty: 21 0RF
Referrals:
Rachid Donato MD [Family Provider] - Follow up in 2-3 days
Activity Restrictions/Additional Instructions:
YOUR CAT SCAN SHOWED A MODERATE AMOUNT OF STOOL IN YOUR COLON
THERE WAS NO OBSTRUCTION
AGAIN YOU HAVE SMALL OVARIAN CYST BUT THIS IS NOT THE CAUSE OF YOUR YSPMTOMS
TRY MIRALAX OR MAGNESIUM CITRATE FOR YOUR CONSTIPATION (MIRALAX IS 1 CAP FULL IN 8 OZ JUICE OR WATER TWICE A DAY FOR 2-3 DAY), MAGNESIUM CITRATE: 150 MLG (HALF BOTTLE) AND WAIT 12 HOURS AND IF NO BOWEL MOVEMENT, THEN DRINK THE OTHER HALF
DO NOT USE BOTH OF THESE LAXATIVES AT THE SAME TIME
METAMUCIL STOOL SOFTENER
RETURN FOR ANY CONCERNS.
Interventions
Interventions:
*Risk Screen - Suicide Last Done: 12/21/24 22:00
*General Assessment Last Done: 12/21/24 22:18
*Neglect/Abuse Screening Last Done: 12/21/24 22:00
*ED- Fall Risk Assessment Last Done: 12/21/24 22:18
*ED COVID-19 Vaccine History Last Done: 12/21/24 22:18
*Nursing Disposition Last Done: 12/22/24 03:54
WK-[id number]-[id number] Assessment Last Done: 12/21/24 22:18
Discharge Date and Time
Discharge Date/Time: 12/22/24 03:57
Print Language: EMIRATI
[2024-12-22 02:00] VITALS: BP 105/75
[2024-12-22 03:47] VITALS: BP 110/73
== END 2024-12-22 03:57 | disposition home or self-care (01) ==
LOC: EMR 21:57
PROVIDERS: Emergency Medicine; Physician Assistant; EMERGENCY PHYSICIAN Emergency Medicine; FAMILY PHYSICIAN Internal Medicine
DX: K59.00 Constipation, unspecified (principal); Z90.49 Acquired absence of other specified parts of digestive tract; Z98.891 History of uterine scar from previous surgery
CPT/HCPCS: 99284; 74177; 76830; 76856; 80053; 81003; 81015; 83690; 84703; 85025; 87086; Q9967

== ENCOUNTER → 2025-02-16 07:59 | Outpatient (REF) | payer OTHER, SELFPAY | LOC: RAD 07:59 | PROVIDERS: ATTENDING PHYSICIAN Internal Medicine; FAMILY PHYSICIAN Internal Medicine | DX: M62.89 Other specified disorders of muscle (principal) | CPT/HCPCS: 74270 ==

== ENCOUNTER 2025-03-28 10:24 | Outpatient (RCR) | payer OTHER, SELFPAY | END 2025-03-28 23:59 | disposition home or self-care (01) | LOC: RPT 10:24 | PROVIDERS: ATTENDING PHYSICIAN Internal Medicine; FAMILY PHYSICIAN Internal Medicine | DX: M62.89 Other specified disorders of muscle (principal); Z73.6 Limitation of activities due to disability; N81.6 Rectocele; K57.90 Diverticulosis of intestine, part unspecified, without perforation or abscess without bleeding; K59.09 Other constipation | CPT/HCPCS: 97110; 97161; 97530 ==

== ENCOUNTER 2025-05-04 16:13 | Outpatient (RCR) | payer OTHER, SELFPAY | END 2025-05-04 23:59 | disposition home or self-care (01) | LOC: RPT 16:13 | PROVIDERS: ATTENDING PHYSICIAN Internal Medicine; FAMILY PHYSICIAN Internal Medicine | DX: M62.89 Other specified disorders of muscle (principal); Z73.6 Limitation of activities due to disability; N81.6 Rectocele; K57.90 Diverticulosis of intestine, part unspecified, without perforation or abscess without bleeding; K59.09 Other constipation | CPT/HCPCS: 97110; 97140; 97530 ==